=== PATIENT | male | born 1995 | race Hispanic/Latino ===

== ENCOUNTER 2018-10-19 06:08 | Day surgery (SDC) | payer OTHER ==
[2018-10-05 13:55] VITALS: BMI 35.9
[2018-10-19] MEDS ORDERED: Lactated Ringer's 1,000 ML IV ONE ×2 (06:51→07:55)
[2018-10-19] MEDS ORDERED: Propofol 10 mg/ml Inj (20 ML) ONE ×2 (07:20→08:09)
[2018-10-19] MEDS ORDERED: Midazolam 2 MG/2 ML VIAL ONE ×6 (07:20→09:51)
[2018-10-19] MEDS ORDERED: Lidocaine 2% Inj (20ml) ONE (07:24)
[2018-10-19] MEDS ORDERED: Bupivacaine 0.5% Inj(30mL) ONE (07:25)
[2018-10-19] MEDS ORDERED: Liquid Adhesive TOP ONE (10:40)
[2018-10-19] MEDS ORDERED: HYDROmorphone 0.5 mg/0.5 ml ISec IVP PRN (10:58)
[2018-10-19] MEDS ORDERED: Lactated Ringer's 1,000 ML IV SCH (11:00)
[2018-10-19 11:17] VITALS: RESP 18
[2018-10-19 13:19] VITALS: BP 140/87; PULSE 102; TEMP 98; O2SAT 96
--- NOTE | 2018-10-20 07:31 | OP ---
PROCEDURE DATE: 10/19/2018 SURGEON: Luis Fernando Alvarado M.D. ANESTHESIOLOGIST: Sophia Whitten M.D. ANESTHESIA: Local with sedation. PREOPERATIVE DIAGNOSES: Overactive bladder, urge incontinence, and pelvic pain. POSTOPERATIVE DIAGNOSES: Overactive bladder, urge incontinence, and pelvic pain. PROCEDURE: Stage I InterStim. ESTIMATED BLOOD LOSS FOR THE PROCEDURE: Minimal. INDICATIONS: The patient is a 23-year-old male with complaints of overactive bladder,urge incontinence, and pelvic pain with failed conservative therapy with both anticholinergics and beta-3 agonist and is here today for treatment. He is having an MRI of his spine to rule out MS, and he has had multiple interventions by the urologist, I am fourth or fifth consulted physician on the case. This is a clean case. OPERATIVE DETAILS: The patient was brought to the operating room, placed in supine position. He was then placed in prone position. He was pre-washed with a chlorhexidine wash, and then the skin was sterilized with the chlorhexidine and alcohol prep. We then prepped and draped the patient in the usual sterile fashion including an [place] drape over the skin. We then used fluoroscopic guidance to place our leads. On the right side, I was able to place the lead into the S3 foramen with good lateral flare. On the left side, despite multiple attempts , we were unable to cannulate the S3 foramen secondary to osteophytic reaction complication. I therefore cannulated the S2 foramen. Intraoperative stimulation of both of these leads resulted in good sensation in the perineum, penis and rectum consistent with good placement of leads. At this point, I was satisfied with the lead placement and using the Seldinger technique was able to tunnel the catheter through a pocket, but I incised the right upper outer quadrant of the right buttock. Excellent hemostasis was achieved using electrocautery. The leads were then placed in their sleeves and extenders were connected. These extenders were tunneled back towards the patient's left side. At the conclusion of the case, excellent hemostasis was achieved. The patient tolerated the procedure well. A sterile dressing was placed. Postoperative instructions including no shower during the test phase, constant communication with the [employer] rep and myself over the test phase, and Tylenol, Motrin, Toradol, and ice pack as needed for pain. The patient will follow up with me in the office. Of note, no guarantees were made regarding the outcome of this procedure. The patient understands that is the reason were are performing a stage I test phase InterStim. Luis Fernando Alvarado M.D. JANAK
--- NOTE | 2018-10-21 12:47 | RAD ---
Date of service: 10/19/2018 PROCEDURE: Fluoroscopic assistance in excess of 1 hour. HISTORY: INTERSTIM PLACEMENT COMPARISON: None TECHNIQUE: Standard protocol for this study/examination. FINDINGS: Submitted images from the current procedure: 4.0 IMPRESSION: Total fluoroscopic time (continuous mode) utilized during the procedure 387.2 seconds.
== END 2018-10-19 13:45 | disposition home or self-care (01) ==
LOC: H.OPSURG 06:08
PROVIDERS: ATTEND Urology
DX: N32.81 Overactive bladder (principal); N39.41 Urge incontinence
CPT/HCPCS: 64581; J2001; J2250; J2704; J3010; J7120

== ENCOUNTER → 2018-11-02 | Day surgery (SDC) | payer OTHER ==
[~2018-11-02] MED LIST: Bupivacaine HCl 0.5% PF (30 ml) Inj ONE; Lidocaine 2% Inj (20ml) ONE; Liquid Adhesive TOP ONE; Midazolam 2 MG/2 ML VIAL ONE; Propofol 10 mg/ml 1,000 MG/100 ML VIAL ONE; ceFAZolin IV 1 gm in Dextrose 0 GM/0 ML BAG IVPB ONE
[2018-11-02 08:06] VITALS: BMI 37.3
[2018-11-02] MEDS: Lactated Ringer's 1,000 ML IV ONE (08:16)
[2018-11-02] MEDS: Bupivacaine 0.5% Inj(30mL) IJ ONE ×2 (09:53)
[2018-11-02] MEDS: Lidocaine 2% Inj (20ml) IJ ONE ×2 (09:53)
[2018-11-02 11:46] VITALS: RESP 20
[2018-11-02 11:47] VITALS: BP 124/73; PULSE 79; TEMP 98.6; O2SAT 96
--- NOTE | 2018-11-02 21:58 | OP ---
PROCEDURE DATE: 11/02/2018 PREOPERATIVE DIAGNOSES: Urgency, urge incontinence. POSTOPERATIVE DIAGNOSES: Urgency, urge incontinence. PROCEDURE: Step II InterStim. SURGEON: Luis Fernando Alvarado MD INDICATIONS FOR PROCEDURE: Mr. Thorne is a 23-year-old male with a history of urgency and frequency. He had a stage I InterStim approximately two weeks ago and during the time of the trial, he had greater than 50% reduction in his symptomatology. He is brought in today for stage II InterStim placement. This is a clean case. OPERATIVE DETAILS: The patient was brought to the operative room, placed in the prone position. Sedation was administered. We then prepped the patient including a pre-scrub with chlorhexidine solution and then alcohol-based prep for the skin. We then draped the patient in the usual sterile fashion. We then called a time-out, verifying the patient name, procedure, antibiotics, and allergies. We proceeded to make an incision over the left upper outer buttock where the area previously made pocket. We opened up this pocket and irrigated it copiously with sterile water, buried the left S2 lead and secured the S2 right leads to the battery in the usual fashion. The battery was placed in an antibiotic-impregnated pouch, and this was placed within the pocket. Impedances were checked. The device was programmed. At this point, we closed the deep space with a 2-0 Vicryl and the skin with a 4-0 Monocryl and placed some FloSeal within the pocket. Dermabond was applied to the skin. Steri-Strips were applied. The patient was ultimately awakened from his sedation and transferred to the recovery room in good, stable condition. The patient tolerated the procedure well. Luis Fernando Alvarado M.D.
== END | disposition home or self-care (01) ==
LOC: H.OPSURG 06:56
PROVIDERS: ATTEND Urology
DX: N39.41 Urge incontinence (principal)
CPT/HCPCS: 64561; 64590; C1767; C1787; C2615; J2001; J2250; J2704; J3010; J7030; J7120